=== PATIENT | female | born 1990 | race Caucasian/White ===

== ENCOUNTER → 2018-02-25 | Outpatient (CLI) | payer BC ==
--- NOTE | 2018-02-25 15:49 | US ---
EXAM DESCRIPTION: Abdomen,Limited: ULTRASOUND. CLINICAL HISTORY: LUQ PAIN tenderness from the left ribs down to the left anterior pelvis. COMPARISON: None. TECHNIQUE: Transabdominal scannin-dimensional and Doppler modes, left abdomen and left chest wall. FINDINGS: Spleen: Normal echogenicity. Long axis XII.9 cm which is within normal limits. No abnormal solid mass or fluid around the spleen. Left kidney: 12.7 x 4.9 x 4.9 cm. Normal echogenicity of the cortex with minimal cortical thinning. No hydronephrosis or perinephric fluid. No calcifications. Proximal ureter not seen. There is palpable ridge or cord like tissue which corresponds to patient tenderness which feels subcutaneous. Scanning these tissue shows vascular like channels without flow. No distinct solid mass. Cystic nonvascular structure measuring 5.7 x 2.8 cm with parallel features is abutting this probable tissue in the left upper quadrant. No large calcifications or parenchymal edema. IMPRESSION: 1. Most likely a thrombosed subcutaneous vein, which is palpable, in the left lateral abdominal wall from the lower anterior ribs to the upper left anterior pelvis. No vascular flow demonstrated. 2. Normal ultrasound of the spleen and left kidney. Electronically signed by: Jac Garcia MD 02/25/2018 3:48 PM CDT
== END ==
LOC: US 09:11
PROVIDERS: ATTEND Nurse Practitioner Family
DX: R10.12 Left upper quadrant pain (principal)